=== PATIENT | female | born 1995 | race African-American/Black ===

== ENCOUNTER 2017-08-24 18:59 | Emergency (ER) | payer MEDICAID ==
[~2017-08-24] VITALS: Ht 167.6 cm; Wt 60.0 kg
[2017-08-24 19:01] VITALS: BP 130/88
[2017-08-24] MEDS ORDERED: DOXYCYCLINE 100MG TABLET PO ONE (20:30)
[2017-08-24] MEDS ORDERED: CEFTRIAXONE 1,000 MG IM ONE (20:30)
[2017-08-24 20:37] LABS: HCG UR LOT HCG7030192
[2017-08-24 20:56] LABS: HCG UR OBC PASS
== END 2017-08-24 21:47 | disposition home or self-care (01) ==
LOC: ED 21:30
DX: N89.8 Other specified noninflammatory disorders of vagina (principal)
CPT/HCPCS: 81003; 81025; 87210; 87808; 96372; 99284; J0696